=== PATIENT | male | born 1950 | race Caucasian/White ===

== ENCOUNTER 2021-08-17 08:55 | Outpatient (REF) | payer MEDICARE, BC, SELFPAY ==
--- NOTE | ~2021-08-17 | XR_ITS ---
EXAMINATION: XR PELVIS CLINICAL INFORMATION: Hip pain. COMPARISON: None TECHNIQUE: AP view of the pelvis. FINDINGS: There is no evidence of acute fracture or diastases of the pelvis. Changes of enthesopathy present. There is partial sacralization of the left L5 transverse process. There is significant degenerative disc disease seen L3 through S1. There are prominent vascular calcifications seen. There is significant narrowing of the left hip joint space compartments with increased sclerosis and spurring. No definite acute fracture is appreciated. There is also noted to be some spurring involving the lesser and greater trochanters on the left. No dislocation is seen. There is some degenerative sclerosis seen involving the superior aspect of the right hip joint with some mild narrowing of the superior joint space compartment. No acute fractures appreciated. Osteitis pubis is present. XR/XR pelvis 1-2V IMPRESSION: 1. Lumbar spondylosis. 2. Changes of enthesopathy. 3. Significant left hip degenerative change with joint space narrowing and sclerosis. 4. Moderate right hip degenerative change.
== END 2021-08-17 08:56 | disposition home or self-care (01) ==
LOC: HO.HOSX 08:55
PROVIDERS: Visit Provider Orthopaedic Surgery
DX: M16.12 Unilateral primary osteoarthritis, left hip (principal)
CPT/HCPCS: 72170; 99202

== ENCOUNTER → 2021-08-29 11:01 | Outpatient (BNVA) | payer MEDICARE, BC, SELFPAY | PROVIDERS: PCP Pediatrics; Visit Provider Orthopaedic Surgery ==

== ENCOUNTER 2021-09-20 08:47 | Outpatient (REF) | payer MEDICARE, BC, SELFPAY ==
--- NOTE | ~2021-09-20 | XR_ITS ---
EXAMINATION: XR HIP, LEFT CLINICAL INFORMATION: Pain COMPARISON: Pelvis x-ray August 2021 TECHNIQUE: Two views of the left hip. FINDINGS: There is moderate to severe left hip arthritis with joint space narrowing and osteophyte formation. There is moderate arthritis right hip joint. There is proliferative bone reaction or enthesopathy of the pelvis. There are degenerative changes of the lower lumbar spine. There is evidence of atherosclerotic disease. XR/XR hip LT min 2V IMPRESSION: Bilateral hip arthritis, left greater than right.
== END 2021-09-20 08:48 | disposition home or self-care (01) ==
LOC: HO.HOSX 08:47
PROVIDERS: Visit Provider Physician Assistant
DX: M16.12 Unilateral primary osteoarthritis, left hip (principal)
CPT/HCPCS: 73502; 99212

== ENCOUNTER 2021-09-25 07:47 | Inpatient (IN) | payer MEDICARE, SELFPAY ==
[2021-09-20 12:04] VITALS: BP 171/83; PULSE 60; RESP 16; O2SAT 97; BMI 27.9
[2021-09-20 14:23] LABS: MRSA Nasal PCR NEGATIVE (Negative); SA Nasal PCR POSITIVE (Negative)
--- NOTE | 2021-09-24 09:34 | P.CONAN_ITS ---
Documented by User: Melissa Arora NP 10/08/21 13:11 HPI - Anesthesia Eval Consult details Narrative: 70yo M for Left Hip Total Replacement ICD in situ (ARVD) Cardiac cleared PCP cleared [facility] Active Problems Active Problems: All Active Problems (Updated 09/19/21 @ 14:09 by Lucinda Otto, LISA) Osteoarthritis of left hip (Acute) Past Medical History Medical History Arrhythmogenic right ventricular dysplasia History of DVT (deep vein thrombosis) Hx of atrial tachycardia Hx of head injury Hyperlipidemia Hypothyroidism ICD (implantable cardioverter-defibrillator), dual, in situ Lyme disease Osteoarthritis Sleep apnea Surgical History Surgical History H/O rotator cuff surgery Hx of colonoscopy Social History Social History Household Members: Family Housing: House Are you a primary healthcare market consultant to a significant other at home: No Do you presently have visiting nurse or other home services: No Patient Tobacco Use Status: Former Tobacco user Quit Date: 1969 Tobacco use type: Cigarette service: No Current occupational status: employed 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[employer]- [employer] Narrative Narrative: Per cardiol and PCP, pt with >4 mets - life long runner, [place] biking regularly Meds Allergies Allergy/AdvReac Type Severity Reaction Status Date / Time No Known Allergies Allergy Verified 09/25/21 07:51 Home Medications Medication Instructions Recorded Confirmed Last Taken Type aspirin 81 mg chewable tablet 81 mg PO DAILY 08/17/21 09/19/21 09/25/21 History atorvastatin 10 mg tablet 1 tab PO DAILY 09/19/21 09/19/21 Unknown History coenzyme Q10 100 mg capsule 100 mg PO DAILY 09/19/21 09/19/21 Unknown History (CoQ-10) levothyroxine 75 mcg tablet 1 tab PO DAILY 09/19/21 09/19/21 09/25/21 06:00 History multivitamin 1 tab PO DAILY 09/19/21 09/19/21 Unknown History sotalol 120 mg tablet 1 tab PO BID 09/19/21 09/19/21 09/25/21 06:00 History Exam Exam Date and Time: September 24, 2021 0934 Height,Weight and Vital Signs: Height 5 ft 9 in Weight 85.9 kg Last Vital Signs Pulse 60 09/20/21 12:04 Resp 16 09/20/21 12:04 BP 171/83 H 09/20/21 12:04 Pulse Ox 97 09/20/21 12:04 Pertinent Lab Results Pertinent Lab Results: Laboratory Tests 09/20/21 09/20/21 12:30 13:00 Nasal Screen MRSA (PCR) NEGATIVE Nasal S. aureus Screen POSITIVE A Nasal MRSA/S.aureus Interp SEE NOTE Blood Type O Positive Antibody Screen NEGATIVE Labs at outside facility BMP WNL CBC WNL except Hct low at 39.9 Narrative Narrative: EKG 09/2021 SR with PACs with nonspecific ST wave abnormalities (chronic) AICD Interr 07/2021 2 brief episodes of nonsustained VT, less than 6 beats, occurring at night 2 hours of atrial tach vs aflutter (low chads, continue surveillance) No recurrence since July Battery life 1.5 years ECHO 2019 Normal LV size. Mild conc LVH. Low normal LV sys function. Basal anterlateral wall could be hypokinetic from subcostal view. LVEF 50-55% Mildly enlarged RV size. Reduced RV global systolic function. Basal RV free wall appears aneurysmal Moderately dilated LA Ascending aorta dilation @ 4.1cm Assessment and Plan Assessment Anesthesia Assessment: Chart Reviewed Documented by User: Rm Murrell MD 10/15/21 15:33 [facility] Past Medical History Medical History Arrhythmogenic right ventricular dysplasia History of DVT (deep vein thrombosis) Hx of atrial tachycardia Hx of head injury Hyperlipidemia Hypothyroidism ICD (implantable cardioverter-defibrillator), dual, in situ Lyme disease Osteoarthritis Sleep apnea Family History Family history of problems with anesthesia: No Surgical History Surgical History H/O rotator cuff surgery Hx of colonoscopy History of Problems with Anesthesia: No Social History Social History Household Members: Family Housing: House Are you a primary healthcare market consultant to a significant other at home: No Do you presently have visiting nurse or other home services: No Patient Tobacco Use Status: Former Tobacco user Quit Date: 1969 Tobacco use type: Cigarette service: No Current occupational status: employed 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[employer]- [employer] Allergies Allergy/AdvReac Type Severity Reaction Status Date / Time No Known Allergies Allergy Verified 09/25/21 07:51 Home Medications Medication Instructions Recorded Confirmed Last Taken Type aspirin 81 mg chewable tablet 81 mg PO DAILY 08/17/21 09/19/21 09/25/21 History atorvastatin 10 mg tablet 1 tab PO DAILY 09/19/21 09/19/21 Unknown History coenzyme Q10 100 mg capsule 100 mg PO DAILY 09/19/21 09/19/21 Unknown History (CoQ-10) levothyroxine 75 mcg tablet 1 tab PO DAILY 09/19/21 09/19/21 09/25/21 06:00 History multivitamin 1 tab PO DAILY 09/19/21 09/19/21 Unknown History sotalol 120 mg tablet 1 tab PO BID 09/19/21 09/19/21 09/25/21 06:00 History Assessment and Plan Assessment Anesthesia Assessment: Anesthesia Plan Discussed Final Anesthetic Review Family History of Problems with Anesthesia: No History of Problems with Anesthesia: No NPO: Yes ASA Class: III Final Preanesthetic Review: No Changes in Pt Med Stat, Meds/Allgs Chart Reviewed, Consent Obtained/Reviewed and Anes Risks/Benef Reviewed Patient Risk: High Procedure Risk: Intermediate Anesthetic Plan Anesthetic Plan: GA Disposition: Standard PACU
[2021-09-25] VITALS (18 sets, daily range): BP systolic 110–190; BP diastolic 64–94; PULSE 47–60; RESP 12–20; TEMP 35.6–37; O2SAT 97–100
--- NOTE | ~2021-09-25 | XR_ITS ---
EXAMINATION: XR PELVIS CLINICAL INFORMATION: Post hip replacement COMPARISON: Previous x-ray 09/20/2021 TECHNIQUE: AP view of the pelvis. FINDINGS: There is a new hip replacement in satisfactory position. No fracture or dislocation is seen. There is arthritis at the right hip joint. Bones of the pelvis are unremarkable. There are postoperative changes to the soft tissues. XR/XR pelvis 1-2V IMPRESSION: Satisfactory appearance of left hip replacement.
--- NOTE | 2021-09-25 08:11 | MHC.SHP ---
Pre-Procedural Eval Section A Date of Service: 09/25/21 The patient is an INPATIENT: No Changes since office visit: Yes Patient answered all questions; No Cold of Flu in the past 2 weeks, No New Medical Problems and No Changes in Medication The History & Physical has been completed within 30 days and I have reviewed it.: Yes Section B Chief Complaint: LT AJAY Allergies: Allergies Allergy/AdvReac Type Severity Reaction Status Date / Time No Known Allergies Allergy Verified 09/25/21 07:51 Plan I have reviewed the history and physical and performed a pertinent physical examination on my patient. No changes have occurred unless specified.
[2021-09-25] MEDS: Lactated Ringers 1,000 ML 100 ML IVCONT (08:37)
[2021-09-25] MEDS: oxyCODONE HCl ER 10 MG TAB.ER.12H PO ×2 (08:47→20:56)
[2021-09-25 08:51] LABS: COVID-19 Test Negative (Negative)
--- NOTE | 2021-09-25 11:29 | PM.OP ---
Brief Operative Note Date of Service: 09/25/21 Pre-op diagnosis: Left hip OA Post-op diagnosis: same Procedure: Left AJAY Implants: Roosevelt [id number] 56 with 20 deg posterior lip liner Stryke accolade 2 #6 127 deg +0 ceramic femoral head Surgeon: Yo Knowles MD Anesthesia: GETA, regional and local Was an Auto Parts Handler used for this Procedure?: Yes Auto Parts Handler: Manolo Elizondo Estimated blood loss (mL): 200 IV fluids (mL): 1,000 Pathology: other Condition: stable Disposition: PACU
--- NOTE | 2021-09-25 11:37 | P.OP_ITS ---
Operative Note Operative Note Date of Service: 09/25/21 Narrative: Pre-op diagnosis: Left hip OA Post-op diagnosis: same Procedure: Left AJAY Implants: Emblem trident2 56 with 20 deg posterior lip liner Stryke accolade 2 #6 127 deg +0 ceramic femoral head Surgeon: Yo Knowles MD Anesthesia: GETA, regional and local Was an Mobile Homes Repairer used for this Procedure?: Yes Mobile Homes Repairer: Manolo Elizondo Estimated blood loss (mL): 200 IV fluids (mL): 1,000 Pathology: other Condition: stable Disposition: PACU Procedure in detail: Patient was brought into the operating room and placed in the right lateral decubitus position. All bony prominences were well padded and the limb was prepped and draped in standard sterile fashion. Time-out was called to identify proper site procedure proper surgeon IV antibiotics and 1 g of transaxemic acid were administered. I began by making a curvilinear incision over the posterolateral aspect of the greater trochanter. Dissection was taken down to the tensor fascia which was incised in line with the incision and a Charnley retractor was placed. Cautery was used to maintain hemostasis. A werewolf device was also used. The hip was internally rotated and the external rotators were identified. The vessels were cauterized and a full-thickness capsular/external rotator layer was developed starting just proximal to the piriformis. This layer was tagged and a dull Hohmann retractor was placed underneath the neck in the hip was dislocated. The head was eburnated. I began reaming with a 46 and sequentially reamed up to a size55 and impacted a 56mm cup at approximately 45 degrees of inclination and 25 degrees of version. I then placed a 20 post li pped liner and turned my attention to the femur. I identified the piriformis insertion and used this as a starting point for my mimi cutter. The medius tendon was protected with a Hibs retractor. I then used a Charnley awl to identify the canal and a curved curette to remove the lateral bone. I irrigated copiously. I then sequentially broached in the patient's natural version to a size #6 and placed my trial implants. Using a trail head I took the hip through range of motion. I was very satisfied with the stability and length. Therefore I removed all instrumentation and copiously irrigated. I placed my final femoral implantand again took the hip through range of motion with a +0 36 mm head and was satisfied with the stability and length. The final ceramic head was impacted in palce. I then irrigated for 3 minutes with iodine and placed 1 g of local tranaxemic acid. I then performed a capsular closure with 2.0 fiberwire, Warren's fascia with 0 Vicryl, subcuticular with 2-0 Vicryl and the skin with aquilino. Patient was placed into a sterile dressing. Radiographs were obtained at the completion of the case and I was satisfied with the component position. Patient was extubated brought to the recovery room in stable condition.
[2021-09-25] MEDS: HYDROmorphone HCl 0.5 MG/0.5 ML SYRINGE 0.25 MG IVPUSH ×7 (11:58→17:31)
[2021-09-25] MEDS: oxyCODONE HCl Immed Release 5 MG TABLET PO (12:01)
--- NOTE | 2021-09-25 13:42 | PHA.MEDREC ---
Pharmacy Consult ? Medication Reconciliation Pharmacy has reviewed the medication reconciliation completed by nurse. Medications list matches with patient filled history. Eloina Montgomery, FlorenceD
[2021-09-25] MEDS: 0.9 % Sodium Chloride Flush 3 ML SYRINGE IVFLUSH (14:28)
--- NOTE | 2021-09-25 14:29 | P.HPHOSP_ITS ---
History of Present Illness Date of Service: 09/25/21 Chief Complaint: hip pain 70-year-old male admitted for elective left total hip arthroplasty for ongoing left hip osteoarthritis. Hospice consultation requested for comorbidities of arrhythmogenic right ventricular dysplasia, hyperlipidemia, hypothyroid. Laurence gomez tolerated procedure well. He denies any complaints. Review of Systems Review of Systems: Constitutional: Denies fever, denies Chills Eyes: denies blurry vision ENT: denies sore throat CVS: denies chest pain Respiratory: Denies dyspnea GI: no abdominal pain : denies dysuria MSK: denies neck pain Skin: denies rash Neuro: denies specific motor weakness Psych: denies suicidal ideation Endocrine: denies heat/cold intolerance Hematologic: denies easy bleeding Allergy: denies hives PMFSH Medical History Arrhythmogenic right ventricular dysplasia History of DVT (deep vein thrombosis) Hx of atrial tachycardia Hx of head injury Hyperlipidemia Hypothyroidism ICD (implantable cardioverter-defibrillator), dual, in situ Lyme disease Osteoarthritis Sleep apnea Surgical History H/O rotator cuff surgery Hx of colonoscopy Social History Household Members: Family Housing: House Are you a primary patient care nursing assistant to a significant other at home: No Do you presently have visiting nurse or other home services: No Patient Tobacco Use Status: Former Tobacco user Quit Date: 1969 Tobacco use type: Cigarette Use of substances other than those prescribed or required for medical reasons: No Have you been hit, kicked, punched, or otherwise hurt by someone within the past year? 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- [employer] Allergies Allergy/AdvReac Type Severity Reaction Status Date / Time No Known Allergies Allergy Verified 09/25/21 07:51 Active Medications: Current Medications Acetaminophen (Acetaminophen 325 Mg Tablet) 650 mg PO Q6H PRN PRN Reason: Pain, Mild (Pain Scale 1-3) Atorvastatin Calcium (Atorvastatin Calcium 10 Mg Tablet) 10 mg PO DAILY [facility] Celecoxib (Celecoxib 200 Mg Capsule) 200 mg PO BID [facility] Docusate Sodium (Docusate Sodium 100 Mg Capsule) 100 mg PO BID [facility] Hydromorphone HCl (Hydromorphone Hcl 0.5 Mg/0.5 Ml Syringe) 0.25 mg IVPUSH Q4H PRN; Protocol PRN Reason: Pain, Severe (Pain Scale 7-10) Hydromorphone HCl (Hydromorphone Hcl 0.5 Mg/0.5 Ml Syringe) 0.25 mg IVPUSH Q5M PRN; Protocol PRN Reason: Pain, Severe (Pain Scale 7-10) Last Admin: 09/25/21 12:48 Dose: 0.25 mg Documented by: Cefazolin Sodium/Dextrose (Ancef) 2 gm in 50 mls @ 100 mls/hr IV POSTOP@1600 [facility] Levothyroxine Sodium (Levothyroxine Sodium 75 Mcg Tablet) 75 mcg PO DAILY [facility] Multivitamins/Vitamin C (Multivitamin Tablet) 1 tab PO DAILY [facility] Non-Formulary Medication (Coenzyme Q10 [Coq-10]) 100 mg PO DAILY [facility] Ondansetron HCl (Ondansetron Hcl 4 Mg/2 Ml Vial) 4 mg IVPUSH ONCE PRN PRN Reason: Nausea and Vomiting Ondansetron HCl (Ondansetron Hcl 4 Mg/2 Ml Vial) 4 mg IVPUSH Q8H PRN PRN Reason: Nausea and Vomiting Oxycodone HCl (Oxycodone Hcl Immed Release 5 Mg Tablet) 5 mg PO Q4H PRN PRN Reason: Pain, Moderate (Pain Scale 4-6 Oxycodone HCl (Oxycodone Hcl Er 10 Mg Tab.Er.12h) 10 mg PO BID [facility] Pharmacy Consult (Consult Rx Perform Med Rec) 1 each MISCELLANE ONCE PRN PRN Reason: Consult order Sodium Chloride (0.9 % Sodium Chloride Flush 3 Ml Syringe) 3 ml IVFLUSH QSHIFT [facility] Sotalol HCl (Sotalol Hcl 120 Mg Tablet) 120 mg PO BID [facility] Home Medications Medication Instructions Recorded Confirmed Last Taken Type aspirin 81 mg chewable tablet 81 mg PO DAILY 08/17/21 09/19/21 09/25/21 History atorvastatin 10 mg tablet 1 tab PO DAILY 09/19/21 09/19/21 Unknown History coenzyme Q10 100 mg capsule 100 mg PO DAILY 09/19/21 09/19/21 Unknown History (CoQ-10) levothyroxine 75 mcg tablet 1 tab PO DAILY 09/19/21 09/19/21 09/25/21 06:00 History multivitamin 1 tab PO DAILY 09/19/21 09/19/21 Unknown History sotalol 120 mg tablet 1 tab PO BID 09/19/21 09/19/21 09/25/21 06:00 History Physical Exam Vital Signs and Narrative: Vital Signs: Last Vital Signs Temp 97.0 F 09/25/21 12:53 Pulse 48 L 09/25/21 13:23 Resp 12 09/25/21 13:23 BP 115/82 09/25/21 13:23 Pulse Ox 99 09/25/21 13:23 Body Mass Index 27.9 General: AO X 3, no acute distress Resp: CTA bilateral, no accessory muscles used CVS: S1,S2,RRR GI: soft, non tender, non distended Neuro: motor grossly intact, alert Psych: appropriate affect, appropriate insight Results Labs Labs: Laboratory Results - last 24 hr 09/25/21 07:58 COVID-19 ([facility]) Negative COVID-19 Clin Com See Note Imaging Radiologist's Impressions: Impressions Pelvis X-Ray 09/25/21 10:22 IMPRESSION: Satisfactory appearance of left hip replacement. Assessment and Plan (1) Osteoarthritis of left hip: Status: Acute 70-year-old male presented for elective left total hip arthroplasty for osteoarthritis status post left hip arthroplasty management per Orthopedics arrhythmogenic right ventricular dysplasia status post AICD in 2008 continue sotalol question unprovoked DVT at that time, had been on 6 months of Coumadin hypothyroid Synthroid hyperlipidemia continue statin Quality Stroke Does the patient have a stroke diagnosis?: No VTE Prior VTE?: Yes VTE Risk Level:: Surgical - high VTE Device Contraindication: N/A - Device Ordered VTE Drug Contraindication: N/A - Med Ordered
[2021-09-25 15:51] LABS: Anion Gap 14 (12-20); Blood Urea Nitrogen 17 mg/dL (9-16); Calcium 8.8 mg/dL (8.4-10.2); Carbon Dioxide 28 mmol/L (22-29); Chloride 101 mmol/L (96-108); Creatinine Clr Calc Pharmacy 75.5; Estimated Glomerular Filt Rate > 60; Glucose Random 150 mg/dL (60-115); Magnesium 1.6 mg/dL (1.6-2.6); Potassium 3.8 mmol/L (3.3-5.1); Sodium 139 mmol/L (135-145)
[2021-09-25] MEDS: ceFAZolin Sodium/Dextrose,Iso 2 GM/50 ML PIGGYBACK IV (17:55)
[2021-09-25] MEDS: Celecoxib 200 MG CAPSULE PO (20:56)
[2021-09-25] MEDS: Docusate Sodium 100 MG CAPSULE PO (20:56)
[2021-09-25] MEDS: Sotalol HCL 80 MG TABLET 120 MG PO (21:01)
[2021-09-26 03:47] VITALS: BP 145/78; PULSE 57; RESP 17; TEMP 37; O2SAT 98
[2021-09-26 05:41] LABS: MANUAL DIFF FLAG NO
[2021-09-26 05:49] LABS: Hematocrit 32.4 % (42.0-52.0); Hemoglobin 11.2 g/dl (14.0-18.0); Imm Gran Abs Auto 0.04 X10*3/uL (0.00-0.03); Imm Gran Pct Auto 0.4 % (0.0-0.4); Lymphocytes Absolute Auto 0.9 X10*3/uL (1.2-4.9); Lymphocytes Percent Auto 8.7 % (20-40); Mean Corpuscular HGB Conc 34.6 g/dl (31.0-36.0); Mean Corpuscular Hemoglobin 31.9 pg (27.0-33.0); Mean Corpuscular Volume 92.3 fL (80.0-98.0); Mean Platelet Volume 11.1 fL (9.4-12.4); Monocytes Absolute Auto 0.9 X10*3/uL (0.1-1.2); Monocytes Percent Auto 8.4 % (2-11); Neutrophils Absolute Auto 8.7 x10*3/uL (2.0-8.3); Neutrophils Percent Auto 82.5 % (45-73); Platelet Count 165 X10*3/uL (160-400); Red Blood Count 3.51 X10*6/uL (4.60-5.80); Red Cell Distribution Width 12.4 % (11.0-16.0); White Blood Count 10.5 X10*3/uL (4.8-10.8)
[2021-09-26 05:57] LABS: Anion Gap 13 (12-20); Blood Urea Nitrogen 17 mg/dL (9-16); Calcium 8.6 mg/dL (8.4-10.2); Carbon Dioxide 27 mmol/L (22-29); Chloride 101 mmol/L (96-108); Creatinine Clr Calc Pharmacy 82.4; Estimated Glomerular Filt Rate > 60; Glucose Fasting 181 mg/dL (60-99); Potassium 4.5 mmol/L (3.3-5.1); Sodium 136 mmol/L (135-145)
--- NOTE | 2021-09-26 07:41 | P.PNOP_ITS ---
Subjective Subjective Date of Service: 09/26/21 Interval history: POD1 s/p LT AJAY withDr. Knowles. Patient allowed to sleep. No overnight events. Physical Exam Vital Signs: Vital Signs: Last Vital Signs Temp 98.6 F 09/26/21 03:47 Pulse 57 09/26/21 03:47 Resp 17 09/26/21 03:47 BP 145/78 H 09/26/21 03:47 Pulse Ox 98 09/26/21 03:47 Body Mass Index 27.9 Const: General: cooperative, healthy appearing and no acute distress Resp: Effort & Inspection: normal respiratory effort and able to speak in complete sentences Cardio: Rate: regular rate Peripheral pulses: Peripheral pulses 2+ throughout GI: Palpation (GI): Soft to palpation Skin: Lesions: no lesions Rashes: no rashes Extrem: Other: Dressing clean, dry, and intact. Procedures Date of Service Date of Service: 09/26/21 Progress Note: A&P Assessment and plan (1) S/P total left hip arthroplasty: Status: Acute Assessment and Plan: Continue pain mgmnt Begin Lovenox for dvt ppx begin PT for LTHA Dispo planning-Pending PT eval, pain mgmnt Fall Risk Details Current Medications: Current Medications Acetaminophen (Acetaminophen 325 Mg Tablet) 650 mg PO Q6H PRN PRN Reason: Pain, Mild (Pain Scale 1-3) Atorvastatin Calcium (Atorvastatin Calcium 10 Mg Tablet) 10 mg PO DAILY [facility] Celecoxib (Celecoxib 200 Mg Capsule) 200 mg PO BID [facility] Last Admin: 09/25/21 20:56 Dose: 200 mg Documented by: Docusate Sodium (Docusate Sodium 100 Mg Capsule) 100 mg PO BID [facility] Last Admin: 09/25/21 20:56 Dose: 100 mg Documented by: Enoxaparin Sodium (Enoxaparin Sodium 40 Mg/0.4 Ml Syringe) 40 mg SUBCUT Q24H [facility] Hydromorphone HCl (Hydromorphone Hcl 0.5 Mg/0.5 Ml Syringe) 0.25 mg IVPUSH Q4H PRN; Protocol PRN Reason: Pain, Severe (Pain Scale 7-10) Last Admin: 09/25/21 17:31 Dose: 0.25 mg Documented by: Hydromorphone HCl (Hydromorphone Hcl 0.5 Mg/0.5 Ml Syringe) 0.25 mg IVPUSH Q5M PRN; Protocol PRN Reason: Pain, Severe (Pain Scale 7-10) Last Admin: 09/25/21 12:48 Dose: 0.25 mg Documented by: Cefazolin Sodium/Dextrose (Ancef) 2 gm in 50 mls @ 100 mls/hr IV POSTOP@1600 [facility] Last Infusion: 09/25/21 18:29 Dose: Infused Documented by: Levothyroxine Sodium (Levothyroxine Sodium 75 Mcg Tablet) 75 mcg PO DAILY [facility] Multivitamins/Vitamin C (Multivitamin Tablet) 1 tab PO DAILY [facility] Ondansetron HCl (Ondansetron Hcl 4 Mg/2 Ml Vial) 4 mg IVPUSH ONCE PRN PRN Reason: Nausea and Vomiting Ondansetron HCl (Ondansetron Hcl 4 Mg/2 Ml Vial) 4 mg IVPUSH Q8H PRN PRN Reason: Nausea and Vomiting Oxycodone HCl (Oxycodone Hcl Immed Release 5 Mg Tablet) 5 mg PO Q4H PRN PRN Reason: Pain, Moderate (Pain Scale 4-6 Oxycodone HCl (Oxycodone Hcl Er 10 Mg Tab.Er.12h) 10 mg PO BID [facility] Last Admin: 09/25/21 20:56 Dose: 10 mg Documented by: Pharmacy Consult (Consult Rx Perform Med Rec) 1 each MISCELLANE ONCE PRN PRN Reason: Consult order Sodium Chloride (0.9 % Sodium Chloride Flush 3 Ml Syringe) 3 ml IVFLUSH QSHIFT [facility] Last Admin: 09/26/21 00:13 Dose: Not Given Documented by: Sotalol HCl (Sotalol Hcl 80 Mg Tablet) 120 mg PO BID [facility] Last Admin: 09/25/21 21:01 Dose: 120 mg Documented by: Time Spent With Patient Time: Total time spent is greater than 50% in coordination of care (as documented) at patient's floor/unit and/or counseling patient: Time with patient: less than 15 minutes Quality Stroke Does the patient have a stroke diagnosis?: No VTE Prior VTE?: Yes VTE Risk Level:: Surgical - high VTE Device Contraindication: N/A - Device Ordered VTE Drug Contraindication: N/A - Med Ordered
[2021-09-26 08:00] VITALS: BP 127/79; PULSE 64; RESP 18; TEMP 37.2; O2SAT 97
--- NOTE | 2021-09-26 08:54 | MHC.CM.PN ---
PER REVIEW OF CHART, A HOSPICE CONSULT WAS ORDERED. REFERRAL PLACED TO [facility]. CASE MANAGEMENT TO FOLLOW UP WITH PROGRESS NOTE FOLLOWING ASSESSMENT.
[2021-09-26] MEDS: oxyCODONE HCl ER 10 MG TAB.ER.12H PO (09:26)
[2021-09-26] MEDS: Multivitamin TABLET 1 TAB PO (09:26)
[2021-09-26] MEDS: 0.9 % Sodium Chloride Flush 3 ML SYRINGE IVFLUSH (09:26)
[2021-09-26 09:27] VITALS: BP 127/79; PULSE 64
[2021-09-26] MEDS: Atorvastatin Calcium 10 MG TABLET PO (09:27)
[2021-09-26] MEDS: Levothyroxine Sodium 75 MCG TABLET PO (09:27)
[2021-09-26] MEDS: Docusate Sodium 100 MG CAPSULE PO (09:27)
[2021-09-26] MEDS: Sotalol HCL 80 MG TABLET 120 MG PO (09:27)
[2021-09-26] MEDS: Celecoxib 200 MG CAPSULE PO (09:27)
--- NOTE | 2021-09-26 09:32 | MHC.CM.PN ---
PATIENT LIVES WITH HIS /NEW HCP (IN CHART) HE HAS A WALKER AND TWO CANES IN THE HOME. A REFERRAL HAS BEEN PLACED TO [facility], WHICH HAS BEEN FOLLOWING PATIENT. [facility] IS ACCEPTING PATIENT FOR HOME P.T. AT BASELINE, PATIENT IS FULLY INDEPENDENT. IMM 09/26 IN CHART
[2021-09-26 09:34] VITALS: BP 127/79; PULSE 64
--- NOTE | 2021-09-26 10:08 | P.F2F_ITS ---
Service Date Service Date: 09/26/21 Reasons for Services Reason for physical therapy: home safety and mobility, therapeutic exercises, restore joint function, gait/transfer training, assess need for DME and ADL training Reason for occupational therapy: home safety and mobility, therapeutic exercises, restore joint function, gait/transfer training, assess need for DME and ADL training Homebound: Leaving the home is medically contraindicated at this time without the asist of a device and/or another person due th the listed conditions above and below. Reason homebound: unsteady gait / fall risk, pain with ambulation, pain with transfers, poor balance / fall risk and unable to drive Homebound supporting statement: Pt. is considered homebound due to recent surgery. Unable to drive, poor balance, poor gait mechanics. Certification: Based on the above findings, I certify that this patient is confined to the home and needs intermittent halfway care, physical therapy and/or speech therapy, or continues to need occupational therapy. The patient is under my care, and I have initiated the establishment of the plan of care. The patient will be followed by a physician who will periodically review the plan of care.
--- NOTE | 2021-09-26 10:09 | P.DS_ITS ---
DS: Providers Provider Date of Service: 09/26/21 Date of admission: 09/25/21 07:47 Primary care physician: Angie Hendricks MD Consults: 09/25/21 11:57 Consult to Hospitalist Routine Consulting Provider: Hospitalist Reason For Exam: MEDICAL MANAGEMENT DS: Diagnosis Discharge Diagnosis (1) S/P total left hip arthroplasty: Status: Acute DS: Summary Hospital Course Hospital Course: The patient underwent a successful left total hip arthroplasty, they were transferred to PACU and then to the floor to recover. During their stay, their vitals were stable, afebrile at 98.6. Labs were unremarkable, H/H 11.2-32.4. POD 1 they were started on Lovenox for DVT ppx, they also received Physical Therapy services twice a day. Prior to discharge, their dressing was clean, incision clean dry and intact, Aquacel dressing intact and the plan was to be discharged home with VNA services. Time Spent with Patient Time attestation: Total time spent providing and/or coordinating discharge services: Discharge coordination time: Less than 30 minutes Quality: Stroke Does the patient have a stroke diagnosis?: No Physical Exam Vital Signs: Vital Signs: Last Vital Signs Temp 98.9 F 09/26/21 08:00 Pulse 64 09/26/21 09:34 Resp 18 09/26/21 08:00 BP 127/79 09/26/21 09:34 Pulse Ox 97 09/26/21 08:00 Body Mass Index 27.9 Const: General: cooperative, healthy appearing and no acute distress Resp: Effort & Inspection: normal respiratory effort and able to speak in complete sentences Cardio: Rate: regular rate Peripheral pulses: Peripheral pulses 2+ throughout GI: Palpation (GI): Soft to palpation Skin: Lesions: no lesions Rashes: no rashes Extrem: Other: left hip Aquacel is clean, dry, and intact. Patient ambulating with a walker. Sensation intact. NVI. DS: Data Data Completed and Pending Pending studies at discharge: Pending at discharge 09/25/21 11:08 Surgical [PTH] Routine Labs on day of discharge: Laboratory Results - last 24 hr 09/25/21 09/25/21 09/26/21 15:31 15:31 05:20 WBC 10.5 RBC 3.51 L Hgb 11.2 L Hct 32.4 L MCV 92.3 MCH 31.9 MCHC 34.6 RDW 12.4 Plt Count 165 MPV 11.1 Immature Gran % (Auto) 0.4 Neut % (Auto) 82.5 H Lymph % (Auto) 8.7 L [place] % (Auto) 8.4 Eos % (Auto) 0.0 Baso % (Auto) 0.0 Lymph # (Auto) 0.9 L [place] # (Auto) 0.9 Eos # (Auto) 0.0 Baso # (Auto) 0.0 Abs Immat Gran (auto) 0.04 H Absolute Neuts (auto) 8.7 H Absolute Nucleated RBC 0.000 Nucleated RBC % (auto) 0.0 Sodium 139 Potassium 3.8 Chloride 101 Carbon Dioxide 28 Anion Gap 14 BUN 17 H Creatinine 0.96 Estim Creat Clear Calc 75.5 Estimated GFR > 60 Random Glucose 150 H Fasting Glucose Calcium 8.8 9.0 Magnesium 1.6 09/26/21 05:20 WBC RBC Hgb Hct MCV MCH MCHC RDW Plt Count MPV Immature Gran % (Auto) Neut % (Auto) Lymph % (Auto) [place] % (Auto) Eos % (Auto) Baso % (Auto) Lymph # (Auto) [place] # (Auto) Eos # (Auto) Baso # (Auto) Abs Immat Gran (auto) Absolute Neuts (auto) Absolute Nucleated RBC Nucleated RBC % (auto) Sodium 136 Potassium 4.5 Chloride 101 Carbon Dioxide 27 Anion Gap 13 BUN 17 H Creatinine 0.88 Estim Creat Clear Calc 82.4 Estimated GFR > 60 Random Glucose Fasting Glucose 181 H Calcium 8.6 Magnesium Discharge Plan Discharge Patient Disposition: Home Health Service Discharge Diagnosis: s/p LT Referrals: Nathalia MONTERO [Outside] - 1 Week Manolo Elizondo PA-C [Phys[facility] [facility]] - 1 Week (10/11/21 at 11:30) Discharge Medications: New enoxaparin 40 mg/0.4 mL Syringe 40 mg subcut Q24H 28 Days Qty: 11.2 RF: 0 acetaminophen 325 mg Tablet 650 mg PO Q6H PRN (Reason: Pain, Mild (Pain Scale 1-3)) 30 Days Qty: 240 RF: 0 celecoxib 200 mg Capsule 200 mg PO BID 30 Days Qty: 60 RF: 0 docusate sodium 100 mg Capsule 100 mg PO BID 30 Days Qty: 60 RF: 0 oxycodone 5 mg Tablet 5 mg PO Q4H PRN (Reason: Pain, Moderate (Pain Scale 4-6) 7 Days Qty: 42 RF: 0 Continued (DME) walker [facility] [place] See Rx Instructions .MEDSUPPLY Qty: 1 RF: 0 multivitamin Tablet 1 tab PO DAILY RF: 0 atorvastatin 10 mg tablet 1 tab PO DAILY RF: 0 sotalol 120 mg tablet 1 tab PO BID RF: 0 levothyroxine 75 mcg tablet 1 tab PO DAILY RF: 0 coenzyme Q10 [CoQ-10] 100 mg Capsule 100 mg PO DAILY RF: 0 Discharge Orders: Discharge Order (Routine); Ordered 09/26/21 Ordered By: Shanika Mcmahan Diet: advance to usual diet Activity on Discharge: Use cane or walker Stand Alone Forms: Patient Portal Discharge page Care Plan Goals: restore fxn to left hip Health Concerns: none Plan of Treatment: Physical Therapy for total hip arthroplasty: posterior precautions, gait training, ROM, strength Limit stair climbing No showering, no tub bath-keep dressing clean, dry and intact No driving x6 weeks Continue Lovenox tabs once a day x 4 weeks Follow up with [facility] in 2 weeks Assessment: stable for d/c
--- NOTE | 2021-09-26 10:20 | MHC.CM.PN ---
PATIENT IS DISCHARGED HOME WITH [facility]. RN AWARE OF PLAN.
[2021-09-26] MEDS: Enoxaparin Sodium 40 MG/0.4 ML SYRINGE SUBCUT (10:21)
--- NOTE | 2021-09-26 15:11 | HO.POSTANES ---
Post Anesthesia Evaluation Post Anesthesia Evaluation Vital Signs: Vital Signs Temp Pulse Resp BP Pulse Ox 09/26/21 09:34 64 127/79 09/26/21 09:27 64 127/79 09/26/21 08:00 98.9 F 64 18 127/79 97 09/26/21 03:47 98.6 F 57 17 145/78 H 98 Anesthesia: Nerve Block and General Mental Status: Awake Pain Control: Satisfactory Nausea/Vomiting: None Hydration: Adequate Anesthesia-Related Issues: No Anes. Related Issues
== END 2021-09-26 11:08 | disposition home health service (06) | DRG 470 ==
LOC: HO.SSSA 07:49 → HO.S3 10:43
PROVIDERS: Internal Medicine; Physician Assistant; Admitting Provider Orthopaedic Surgery; PCP Pediatrics; Visit Provider Orthopaedic Surgery
PROC: 0SRB03A Replacement of Left Hip Joint with Ceramic Synthetic Substitute, Uncemented, Open Approach (ICD-10-PCS; CPT 27130; principal; 2021-09-25 09:20)
DX: M16.12 Unilateral primary osteoarthritis, left hip (principal); I42.8 Other cardiomyopathies; E03.9 Hypothyroidism, unspecified; E78.5 Hyperlipidemia, unspecified; Z95.810 Presence of automatic (implantable) cardiac defibrillator; Z20.822 Contact with and (suspected) exposure to COVID-19; Z86.718 Personal history of other venous thrombosis and embolism; Z87.891 Personal history of nicotine dependence; Z79.890 Hormone replacement therapy; Z79.899 Other long term (current) drug therapy
CPT/HCPCS: 36415; 72170; 80048; 82310; 83735; 85025; 86850; 86900; 86901; 87635; 87640; 87641; 88304; 88305; 88311; 97110; 97116; 97161; 97165; C1776; J0131; J0690; J1100; J1170; J1650; J2250; J2405; J3010

== ENCOUNTER → 2021-10-11 11:38 | Outpatient (BNVA) | payer MEDICARE, SELFPAY | PROVIDERS: PCP Pediatrics; Visit Provider Physician Assistant | DX: Z47.1 Aftercare following joint replacement surgery (principal); Z96.642 Presence of left artificial hip joint | CPT/HCPCS: 99212 ==

== ENCOUNTER 2021-11-08 09:09 | Outpatient (REF) | payer MEDICARE, SELFPAY ==
--- NOTE | ~2021-11-08 | XR_ITS ---
EXAMINATION: X-RAY PELVIS X-RAY LEFT HIP CLINICAL INFORMATION: Pain. COMPARISON: Pelvic radiograph dated from 09/25/2021. TECHNIQUE: AP view of the pelvis and 2 views of the left hip were obtained. FINDINGS: Images of the left hip are degraded by motion and underexposure. However, the obtained image of the pelvis is of adequate quality without evidence of acute fractures or malalignment. A total left-sided hip arthroplasty is intact. There is decreased bony mineralization with moderate degenerative changes in the right hip. Pelvic phleboliths and scattered vascular calcifications without unexpected radiopaque foreign bodies. XR/XR pelvis 1-2V IMPRESSION: No acute fractures or malalignment. Normal total left hip prosthesis.
--- NOTE | ~2021-11-08 | XR_ITS ---
EXAMINATION: X-RAY PELVIS X-RAY LEFT HIP CLINICAL INFORMATION: Pain. COMPARISON: Pelvic radiograph dated from 09/25/2021. TECHNIQUE: AP view of the pelvis and 2 views of the left hip were obtained. FINDINGS: Images of the left hip are degraded by motion and underexposure. However, the obtained image of the pelvis is of adequate quality without evidence of acute fractures or malalignment. A total left-sided hip arthroplasty is intact. There is decreased bony mineralization with moderate degenerative changes in the right hip. Pelvic phleboliths and scattered vascular calcifications without unexpected radiopaque foreign bodies. XR/XR hip LT 1V IMPRESSION: No acute fractures or malalignment. Normal total left hip prosthesis.
== END 2021-11-08 09:10 | disposition home or self-care (01) ==
LOC: HO.HOSX 09:09
PROVIDERS: Visit Provider Orthopaedic Surgery
DX: M25.552 Pain in left hip (principal); M16.12 Unilateral primary osteoarthritis, left hip; E78.5 Hyperlipidemia, unspecified; E03.9 Hypothyroidism, unspecified; Z87.891 Personal history of nicotine dependence; Z96.642 Presence of left artificial hip joint; Z95.810 Presence of automatic (implantable) cardiac defibrillator
CPT/HCPCS: 72170; 73501; 99212

== ENCOUNTER 2022-11-22 13:42 | Outpatient (REF) | payer MEDICARE, SELFPAY ==
[2022-11-22 13:54] LABS: MANUAL DIFF FLAG NO
[2022-11-22 14:19] LABS: Basophils Percent Auto 0.6 % (0-2); Eosinophils Absolute Auto 0.1 X10*3/uL (0.0-0.4); Eosinophils Percent Auto 1.8 % (0-4); Hematocrit 40.9 % (42.0-52.0); Imm Gran Abs Auto 0.02 X10*3/uL (0.00-0.03); Imm Gran Pct Auto 0.3 % (0.0-0.4); Lymphocytes Absolute Auto 1.9 X10*3/uL (1.2-4.9); Lymphocytes Percent Auto 29.3 % (20-40); Mean Corpuscular HGB Conc 34.2 g/dl (31.0-36.0); Mean Corpuscular Hemoglobin 31.7 pg (27.0-33.0); Mean Corpuscular Volume 92.7 fL (80.0-98.0); Mean Platelet Volume 11.4 fL (9.4-12.4); Monocytes Absolute Auto 0.7 X10*3/uL (0.1-1.2); Monocytes Percent Auto 10.7 % (2-11); Neutrophils Absolute Auto 3.7 x10*3/uL (2.0-8.3); Neutrophils Percent Auto 57.3 % (45-73); Platelet Count 246 X10*3/uL (160-400); Red Blood Count 4.41 X10*6/uL (4.60-5.80); Red Cell Distribution Width 11.4 % (11.0-16.0); White Blood Count 6.5 X10*3/uL (4.8-10.8)
[2022-11-22 14:22] LABS: Prothrombin Time 11.6 SEC (10.0-13.1)
[2022-11-22 14:44] LABS: Anion Gap 15 (12-20)
[2022-11-22 14:47] LABS: Carbon Dioxide 26 mmol/L (22-29)
[2022-11-22 14:52] LABS: Blood Urea Nitrogen 14 mg/dL (9-16); Calcium 9.6 mg/dL (8.4-10.2); Chloride 106 mmol/L (96-108); Estimated Glomerular Filt Rate > 60; Glucose Random 84 mg/dL (60-115); Potassium 4.5 mmol/L (3.3-5.1); Sodium 142 mmol/L (135-145)
== END 2022-11-22 13:43 | disposition home or self-care (01) ==
LOC: HO.LAB 13:42
PROVIDERS: PCP Internal Medicine; Visit Provider Internal Medicine Cardiovascular Disease
DX: Z95.810 Presence of automatic (implantable) cardiac defibrillator (principal)
CPT/HCPCS: 36415; 80048; 85025; 85610